=== PATIENT | male | born 1965 | race Caucasian/White ===

== ENCOUNTER 2017-04-23 10:51 | Emergency (ER) | payer BC, SELFPAY ==
[2017-04-23] MEDS ORDERED: Prochlorperazine 10 MG/2 ML VIAL ONE (11:56)
[2017-04-23] MEDS ORDERED: diphenhydrAMINE 50 MG/ML VIAL ONE (11:56)
[2017-04-23 12:04] LABS: #Eosinphils 0.1 thou/uL (0.0-0.7); #Lymphocytes 2.2 thou/uL (1.20-3.40); #Monocytes 0.5 thou/uL (0.11-0.59); #Neutrophils 3.7 thou/uL (1.40-6.50); %Basophils 0.7 % (0.0-1.0); %Eosinophils 1.3 % (0.0-10.0); %Lymphocytes 33.5 % (21.0-51.0); %Neutrophils 57.5 % (42.0-75.0); Hemoglobin 14.7 g/dL (14.0-18.0); Mean Corpuscular Hemoglobin 34.1 pg (27.0-31.0); Mean Corpuscular Volume 97.6 fl (80.0-94.0); Mean Platelet Volume 7.8 fL (7.4-10.4); Platelet Count 248 thou/uL (130-400); RBC Distribution Width 11.5 % (11.5-14.5); Red Blood Cell (RBC) Count 4.32 mill/uL (4.70-6.10); White Blood Cell (WBC) Count 6.5 thou/uL (4.8-10.8)
[2017-04-23 12:05] LABS: MDiff Complete? YES; Manual Diff?? NO
[2017-04-23 12:18] LABS: ALT (SGPT) 28 U/L (8-55); AST (SGOT) 26 U/L (5-34); Albumin 4.5 g/dL (3.5-5.0); Alkaline Phosphatase 83 U/L (40-150); Anion Gap 12 mmol/L (10-20); BUN (Urea Nitrogen) 14 mg/dL (8.9-20.6); Bilirubin, Total 0.3 mg/dL (0.2-1.2); Calc. Creatinine Clearance 0 mL/min (70-130); Calcium 9.7 mg/dL (7.8-10.44); Carbon Dioxide 26 mmol/L (22-29); Chloride 106 mmol/L (98-107); Estimated GFR-MDRD Greater than 90; Globulin 3.5 g/dL (2.4-3.5); Glucose 104 mg/dL (70-105); Lipase 12 U/L (8-78); Potassium 4.8 mmol/L (3.5-5.1); Sodium 139 mmol/L (136-145)
[2017-04-23 12:19] LABS: CKMB 1.5 ng/mL (0-6.6); Troponin I Less than 0.010 ng/mL (< 0.028)
--- NOTE | 2017-04-23 12:31 | CT ---
HEAD CT WITHOUT CONTRAST: Date: 04-23-17 Comparison: None. History: Headache, nausea, hypertension. Technique: Serial axial CT imaging at 5 mm intervals from vertex through skull base without contrast . FINDINGS: There is incomplete opacification of bilateral ethmoid air cells. There is no displaced calvarial fr acture. No intracranial hemorrhage, midline shift, mass effect, or ventricular enlargement. IMPRESSION: No acute findings. POS: [email or web address]
[2017-04-23 13:11] LABS: Bilirubin Negative (Negative); Blood, Urine Trace (Negative); Clarity Clear (Clear); Glucose, Urine (Dipstick) Negative (Negative); Leukocyte Negative (Negative); Nitrite Negative (Negative); Protein, Urine (Dipstick) Negative (Neg-Trace); Specific Gravity, Urine 1.015 (1.005-1.030); Urobilinogen 0.2 mg/dL (0.2-1.0); pH, Urine 8.5 (5.0-9.0)
[2017-04-23 13:22] LABS: Bacteria/HPF None Seen HPF (None Seen); Crystals/HPF None Seen HPF (Negative); Hyaline Casts/LPF NONE SEEN LPF (0-3 Hyaline); Other Casts/LPF None Seen LPF (0-3 Hyaline); Oval Fat Bodies/HPF None Seen HPF (None Seen); RBC/HPF 0-3 HPF (0-3); Renal Epithelial None Seen HPF (0-3); Sperm/HPF None Seen HPF (None Seen); Squamous Epithelial None Seen HPF (0-3); Transitional Epithelial NONE SEEN HPF (0-3); Trichomonas/HPF None Seen HPF (None Seen); WBC/HPF None Seen HPF (0-3); Yeast-All Forms None Seen HPF (None Seen)
== END 2017-04-23 13:30 ==
LOC: BURERS 10:51
DX: R51 Headache (principal); R11.2 Nausea with vomiting, unspecified; Z87.891 Personal history of nicotine dependence
CPT/HCPCS: 36415; 70450; 80053; 81003; 81015; 82553; 83690; 84443; 84484; 85025; 96374; 96375; J0780; J1200

== ENCOUNTER 2018-12-28 10:04 | Outpatient (CLI) | payer OTHER | END 2018-12-28 10:05 | disposition home or self-care (01) | LOC: BUREKG 10:04 | PROVIDERS: ATTEND Physician Assistant | DX: I95.1 Orthostatic hypotension (principal) | CPT/HCPCS: 93005; 93010 ==

== ENCOUNTER 2019-09-23 13:21 | Emergency (ER) | payer OTHER ==
[2019-09-23] MEDS ORDERED: Bupivacaine 0.5% 10 ML VIAL ONE (13:24)
[2019-09-23] MEDS ORDERED: HYDROcodone/Acetaminophen 5/325 mg Tablet ONE (13:46)
[2019-09-23] MEDS ORDERED: Bacitracin 1 PK ONE (13:47)
[2019-09-23] MEDS ORDERED: Cephalexin 250 MG CAP ONE (13:47)
[2019-09-23] MEDS ORDERED: Ondansetron ODT 4 MG TAB ONE (13:47)
[2019-09-23] MEDS ORDERED: Adacel (T-DAP) 0.5 ML SYRINGE ONE (13:47)
== END 2019-09-23 14:30 | disposition home or self-care (01) ==
LOC: BURERS 13:21
DX: S71.112A Laceration without foreign body, left thigh, initial encounter (principal); Z87.891 Personal history of nicotine dependence; Z23 Encounter for immunization; W29.8XXA Contact with other powered hand tools and household machinery, initial encounter
CPT/HCPCS: 12002; 90471; 90715; J3490; Q0162

== ENCOUNTER 2019-09-24 08:10 | Emergency (ER) | payer OTHER ==
[2019-09-24] MEDS ORDERED: Ondansetron ODT 4 MG TAB ONE ×2 (08:23→09:06)
[2019-09-24] MEDS ORDERED: Acetaminophen 500 MG TAB ONE (09:06)
== END 2019-09-24 09:09 | disposition home or self-care (01) ==
LOC: BURERS 08:10
DX: R11.2 Nausea with vomiting, unspecified (principal); T40.2X5A Adverse effect of other opioids, initial encounter; Z87.891 Personal history of nicotine dependence
CPT/HCPCS: 99283; Q0162

== ENCOUNTER 2025-03-16 12:51 | Emergency (ER) | payer BC, OTHER | END 2025-03-16 14:10 | disposition short-term general hospital (02) | LOC: BURERS 12:51 | DX: S51.852A Open bite of left forearm, initial encounter (principal); S01.452A Open bite of left cheek and temporomandibular area, initial encounter; S01.551A Open bite of lip, initial encounter; S03.2XXA Dislocation of tooth, initial encounter; S01.412A Laceration without foreign body of left cheek and temporomandibular area, initial encounter; S51.812A Laceration without foreign body of left forearm, initial encounter; S01.511A Laceration without foreign body of lip, initial encounter; F17.210 Nicotine dependence, cigarettes, uncomplicated; W54.0XXA Bitten by dog, initial encounter | CPT/HCPCS: 99284 ==